=== PATIENT | female | born 1980 | race African-American/Black ===

== ENCOUNTER → 2016-09-24 | Outpatient (CLI) | payer OTHER ==
[~2016-09-24] MED LIST: MOTRIN 600600 MG/TAB PO; PERCOCET 325 MG1 TA2 PO
== END ==
LOC: COL.RAD 09:44
DX: N97.9 Female infertility, unspecified (principal); D25.2 Subserosal leiomyoma of uterus

== ENCOUNTER 2017-06-29 10:18 | Inpatient (IN) | payer OTHER ==
[2017-06-29] VITALS (17 sets, daily range): BP systolic 90–104; BP diastolic 55–72; PULSE 54–100; TEMP 97–98
[~2017-06-29] VITALS: Ht 177.8 cm; Wt 89.1 kg
[2017-06-29] MEDS ORDERED: PRENATAL (10:56)
[2017-06-29] MEDS ORDERED: PROFERRIN ES12 MG PO (10:57)
[2017-06-29 11:09] LABS: BASO % 0.4 % (0.0-2.0); EOS % 0.4 % (0-4.0); GRAN % 68.8 % (42.2-75.2); HEMATOCRIT 36.7 % (37.0-47.0); HEMOGLOBIN 12.2 g/dl (12.5-16.0); LYMPH # 1.7 (1.2-3.4); LYMPH % 22.8 % (20.0-51.0); MEAN CELL VOLUME 95 fl (80.0-100.0); MEAN CORPUSCULAR HEMOGLOBIN 31 pg (27.0-31.0); MEAN CORPUSCULAR HGB CONC 33 g/dl (33.0-37.0); MONO # 0.5 (0.1-0.6); MONO % 6.9 % (1.7-9.3); PLATELET COUNT 160 K/mm3 (130-400); RED BLOOD COUNT 3.88 M/mm3 (4.10-5.30); REDCELL DISTRIBUTION WIDTH-CV 12.8 % (11.5-14.5)
[2017-06-30 01:20] VITALS: BP 94/59; PULSE 66; TEMP 97.8
[2017-06-30 07:04] LABS: HEMATOCRIT 35.8 % (37.0-47.0); HEMOGLOBIN 11.9 g/dl (12.5-16.0)
[2017-06-30 07:55] VITALS: BP 90/67; PULSE 62; TEMP 97.7
[2017-06-30 17:00] VITALS: BP 104/61; PULSE 64; TEMP 98
[2017-07-01 08:20] VITALS: BP 96/58; PULSE 67; TEMP 98.7
[2017-07-01 16:50] VITALS: BP 95/64; PULSE 93; TEMP 98.3
[2017-07-01 19:00] VITALS: BP 93/56; PULSE 64; TEMP 98.8
[2017-07-02 08:10] VITALS: BP 99/58; PULSE 76; TEMP 98.5
[2017-07-02 15:10] VITALS: BP 100/56; PULSE 69; TEMP 97.7
[2017-07-03 08:00] VITALS: BP 140/88; PULSE 78; TEMP 98.4
== END 2017-07-03 11:44 | disposition home or self-care (01) | DRG 765 ==
LOC: OB 10:18 → LDR 14:25 → OB 07-03 11:44
PROVIDERS: Obstetrics & Gynecology
PROC: 10D00Z1 Extraction of Products of Conception, Low, Open Approach (ICD-10-PCS; principal; 2017-06-29)
DX: O34.211 Maternal care for low transverse scar from previous cesarean delivery (principal); O30.043 Twin pregnancy, dichorionic/diamniotic, third trimester; N85.8 Other specified noninflammatory disorders of uterus; Z3A.37 37 weeks gestation of pregnancy; Z37.2 Twins, both liveborn
CPT/HCPCS: J0690; J2270; J2405; J2590; J7120

== ENCOUNTER → 2018-10-06 | Outpatient (CLI) | payer OTHER ==
[~2018-10-06] MED LIST changes: +PRENATAL; +PROFERRIN ES12 MG PO
== END ==
LOC: COL.RAD 09:45
DX: N93.8 Other specified abnormal uterine and vaginal bleeding (principal); N94.6 Dysmenorrhea, unspecified; R19.06 Epigastric swelling, mass or lump; Z98.890 Other specified postprocedural states

== ENCOUNTER → 2021-11-04 | Outpatient (CLI) | payer OTHER | LOC: MC.RAD 11:15 | DX: Z12.31 Encounter for screening mammogram for malignant neoplasm of breast (principal) ==

== ENCOUNTER → 2023-03-25 | Outpatient (CLI) | payer OTHER | LOC: MC.RAD 14:00 | DX: Z12.31 Encounter for screening mammogram for malignant neoplasm of breast (principal) ==